=== PATIENT | female | born 1965 | race Two or more races ===

== ENCOUNTER 2017-04-23 12:16 | Observation (INO) | payer OTHER ==
[~2017-04-23] VITALS: Ht 152.4 cm; Wt 77.0 kg
[2017-04-23] MEDS ORDERED: PANTOPRAZOLE SO40 MG PO (12:29)
[2017-04-23] MEDS ORDERED: SIMVASTATIN10 MG PO (12:29)
[2017-04-23] MEDS ORDERED: GLUCOPHAGE1000 MG PO (12:29)
[2017-04-23] MEDS ORDERED: VITAMIN B122500 MCG PO (12:30)
[2017-04-23] MEDS ORDERED: ASPIR 8181 M1 PO (12:30)
[2017-04-23 13:12] LABS: BASOPHIL COUNT 0.1 K/uL (0-0.1); EOSINOPHIL (%) 8.3 % (0-5); EOSINOPHIL COUNT 0.8 K/uL (0-0.3); HEMATOCRIT 32.2 % (36.0-46.0); HEMOGLOBIN 9.9 G/DL (11.9-15.5); IMMATURE GRANULOCYTE (%) 0.4 % (0.0-0.7); LYMPHOCYTE (%) 12.9 % (15-42); LYMPHOCYTE COUNT 1.2 K/uL (1.0-2.8); MCH 22.2 PG (29.0-34.0); MCHC 30.7 G/DL (30.0-36.0); MCV 72.4 FL (83-99); MONOCYTE (%) 5.8 % (3-12); MONOCYTE COUNT 0.5 K/uL (0-0.8); NEUTROPHIL (%) 71.6 % (45-76); NEUTROPHIL COUNT 6.7 K/uL (1.8-6.4); PLATELET COUNT 223 K/uL (156-360); RBC DIS.WIDTH-CV 16.3 % (11.8-14.6); RBC DIS.WIDTH-SD 40.7 % (39-53); RED BLOOD COUNT 4.45 M/uL (3.80-5.20); WHITE BLOOD COUNT 9.4 K/uL (4.1-10.2)
[2017-04-23 13:16] LABS: CHLORIDE 107 mEq/L (99-109); POTASSIUM 4.5 mEq/L (3.7-5.4); SODIUM 138 mEq/L (136-147)
[2017-04-23 13:17] LABS: GLUCOSE 129 mg/dL (70-99)
[2017-04-23 13:21] LABS: CREATININE 0.7 mg/dL (0.6-1.3); GFR ESTIMATE (CALCULATED) > 59 mL/min/
[2017-04-23 13:22] LABS: UREA NITROGEN (BUN) 14 mg/dL (9-23)
[2017-04-23 13:28] LABS: TROP-I INTERPRETATION NEGATIVE; TROPONIN-I < 0.01 ng/mL (0.0-0.30)
[2017-04-23] MEDS ORDERED: TYLENOL WITH C1 EACH PO (14:22)
[2017-04-23 14:42] VITALS: BP 116/48
== END 2017-04-23 14:28 | disposition home or self-care (01) ==
LOC: EME 12:16 → CANRESERV 14:03 → ENRESERV 14:03 → EDOF 14:05
PROVIDERS: Emergency Medicine
DX: R55 Syncope and collapse (principal); R07.89 Other chest pain; R10.9 Unspecified abdominal pain; R42 Dizziness and giddiness; D50.9 Iron deficiency anemia, unspecified; E11.9 Type 2 diabetes mellitus without complications; E78.5 Hyperlipidemia, unspecified; K21.9 Gastro-esophageal reflux disease without esophagitis
CPT/HCPCS: 71045; 80048; 83880; 84484; 85025; 93005; 99281; 99285; G0378; J2270; J7030

== ENCOUNTER 2017-08-26 22:10 | Emergency (ER) | payer OTHER ==
[~2017-08-26] VITALS: Ht 149.9 cm; Wt 77.0 kg
[~2017-08-26 22:10] MED LIST: ASPIR 8181 M1 PO; GLUCOPHAGE1000 MG PO; PANTOPRAZOLE SO40 MG PO; SIMVASTATIN10 MG PO; TYLENOL WITH C1 EACH PO; VITAMIN B122500 MCG PO
[2017-08-26 23:22] LABS: HEMATOCRIT 34.5 % (36.0-46.0); HEMOGLOBIN 11.3 G/DL (11.9-15.5); MCH 26.9 PG (29.0-34.0); MCHC 32.8 G/DL (30.0-36.0); MCV 82.1 FL (83-99); PLATELET COUNT 250 K/uL (156-360); RBC DIS.WIDTH-CV 14.6 % (11.8-14.6); RBC DIS.WIDTH-SD 43.1 % (39-53); WHITE BLOOD COUNT 6.8 K/uL (4.1-10.2)
[2017-08-26 23:33] LABS: ALBUMIN 3.8 g/dL (3.2-4.8); CHLORIDE 107 mEq/L (99-109); POTASSIUM 4.5 mEq/L (3.7-5.4); SODIUM 137 mEq/L (136-147)
[2017-08-26 23:36] LABS: GLUCOSE 141 mg/dL (70-99); TOTAL PROTEIN 6.8 g/dL (6.4-8.3)
[2017-08-26 23:38] LABS: TOTAL BILIRUBIN 0.2 mg/dL (0.0-1.0)
[2017-08-26 23:39] LABS: ALKALINE PHOSPHATASE 55 IU/L (3-129); CREATININE 0.7 mg/dL (0.6-1.3); GFR ESTIMATE (CALCULATED) > 59 mL/min/
[2017-08-26 23:40] LABS: UREA NITROGEN (BUN) 14 mg/dL (9-23)
[2017-08-26 23:41] LABS: AST (GOT) 14 IU/L (2-34)
[2017-08-26 23:42] LABS: ALT (GPT) 14 IU/L (3-49)
[2017-08-26 23:48] LABS: QUANTITATIVE HCG < 4.0 MIU/ML
[2017-08-27 01:13] LABS: APPEARANCE SL.HAZY ((CLEAR)); BILIRUBIN NEGATIVE; BLOOD LARGE; COLOR STRAW ((YELLOW)); GLUCOSE (STRIP) NEGATIVE; KETONES NEGATIVE; LEUKOCYTES NEGATIVE; NITRITE NEGATIVE; PROTEIN (STRIP) NEGATIVE; SPECIFIC GRAVITY 1.012 (1.000-1.030); UROBILINOGEN 0.2 MG/DL (0.2-1.0)
[2017-08-27 01:18] LABS: BACTERIA NONE SEEN /HPF; EPITHELIAL CELLS RARE /HPF; MUCUS NONE SEEN /LPF; RED BLOOD CELLS TNTC /HPF (0-5); UCUL ADDED? YES; WHITE BLOOD CELLS 0-5 /HPF (0-5)
[2017-08-27] MEDS ORDERED: LYSTEDA650 MG PO (04:12)
[2017-08-27 04:16] VITALS: BP 116/79
== END 2017-08-27 04:17 | disposition home or self-care (01) ==
LOC: EME 22:10
DX: N93.8 Other specified abnormal uterine and vaginal bleeding (principal); N92.0 Excessive and frequent menstruation with regular cycle; D64.9 Anemia, unspecified; D25.9 Leiomyoma of uterus, unspecified; R07.9 Chest pain, unspecified; N83.292 Other ovarian cyst, left side; E78.5 Hyperlipidemia, unspecified; E11.9 Type 2 diabetes mellitus without complications; Z79.84 Long term (current) use of oral hypoglycemic drugs; Z79.82 Long term (current) use of aspirin
CPT/HCPCS: 76856; 80053; 81003; 84702; 85027; 87086; 99281; 99284; J3010; J7030

== ENCOUNTER 2017-09-02 11:37 | Day surgery (SDC) | payer OTHER ==
[~2017-09-02] VITALS: Ht 149.9 cm; Wt 77.0 kg
[~2017-09-02 11:37] MED LIST changes: +LYSTEDA650 MG PO
[2017-09-02 12:29] VITALS: BP 118/67
[2017-09-02 12:32] LABS: BASOPHIL (%) 0.8 % (0-1); BASOPHIL COUNT 0.1 K/uL (0-0.1); EOSINOPHIL (%) 3.4 % (0-5); EOSINOPHIL COUNT 0.2 K/uL (0-0.3); HEMATOCRIT 27.6 % (36.0-46.0); LYMPHOCYTE (%) 19.7 % (15-42); LYMPHOCYTE COUNT 1.4 K/uL (1.0-2.8); MCH 27.1 PG (29.0-34.0); MCHC 32.6 G/DL (30.0-36.0); MCV 83.1 FL (83-99); MONOCYTE (%) 7.9 % (3-12); MONOCYTE COUNT 0.6 K/uL (0-0.8); NEUTROPHIL (%) 67.2 % (45-76); NEUTROPHIL COUNT 4.8 K/uL (1.8-6.4); NRBC (%) 0.4 /100 WBC (0-0); PLATELET COUNT 280 K/uL (156-360); RBC DIS.WIDTH-CV 15.2 % (11.8-14.6); RBC DIS.WIDTH-SD 44.8 % (39-53); WHITE BLOOD COUNT 7.1 K/uL (4.1-10.2)
[2017-09-02 12:33] LABS: RED BLOOD COUNT 3.32 M/uL (3.80-5.20)
[2017-09-02 12:45] LABS: INTER. NORMALIZED RATIO 0.9
[2017-09-02 12:46] LABS: CHLORIDE 106 mEq/L (99-109); POTASSIUM 4.4 mEq/L (3.7-5.4); SODIUM 138 mEq/L (136-147)
[2017-09-02 12:47] LABS: PTT 26.7 SEC (25-37)
[2017-09-02 12:48] LABS: GLUCOSE 124 mg/dL (70-99)
[2017-09-02 12:51] LABS: CREATININE 0.7 mg/dL (0.6-1.3); GFR ESTIMATE (CALCULATED) > 59 mL/min/
[2017-09-02 12:52] LABS: UREA NITROGEN (BUN) 13 mg/dL (9-23)
[2017-09-02 13:04] LABS: QUANTITATIVE HCG < 4.0 MIU/ML
[2017-09-02 13:50] LABS: THYROTROPIN (TSH) 3.2 MIU/L (0.4-5.5)
[2017-09-02 13:55] LABS: PROLACTIN 10.4 NG/ML
[2017-09-02] MEDS ORDERED: LYSTEDA650 MG PO (14:11)
[2017-09-02] MEDS ORDERED: MOTRIN600 MG PO (14:11)
[2017-09-02] MEDS ORDERED: FEOSOL325 MG PO (14:11)
[2017-09-02 15:32] LABS: HEMATOCRIT 22.4 % (36.0-46.0); MCV 84.8 FL (83-99)
[2017-09-02 20:44] VITALS: BP 113/63
[2017-09-02 21:26] LABS: MCV 85.9 FL (83-99)
[2017-09-02 21:29] LABS: HEMOGLOBIN 9.8 G/DL (11.9-15.5)
[2017-09-03 00:01] VITALS: BP 114/67
[2017-09-03 03:46] VITALS: BP 100/53
[2017-09-03 07:31] VITALS: BP 118/68
== END 2017-09-03 09:44 | disposition home or self-care (01) ==
LOC: SDC 11:37 → 2SOUTH 16:09 → 2EAST 16:09 → 2SOUTH 16:09 → ENRESERV 16:10 → 2EAST 17:36
PROVIDERS: Anesthesiology; Obstetrics & Gynecology
DX: N93.9 Abnormal uterine and vaginal bleeding, unspecified (principal); D62 Acute posthemorrhagic anemia; E11.9 Type 2 diabetes mellitus without complications; E66.9 Obesity, unspecified; Z68.35 Body mass index [BMI] 35.0-35.9, adult; Z79.84 Long term (current) use of oral hypoglycemic drugs; Z79.82 Long term (current) use of aspirin
CPT/HCPCS: 76705; 80048; 82948; 84146; 84443; 84702; 85014; 85018; 85025; 85610; 85730; 86850; 86900; 86901; 86920; 88305; G0378; J0131; J1100; J1170; J1815; J2250; J2405; J3010; J7120; P9016; Q0175